=== PATIENT | male | born 2005 | race Two or more races ===

== ENCOUNTER 2024-05-22 22:17 | Emergency (ER) | payer OTHER ==
[~2024-05-22] VITALS: Ht 180.3 cm; Wt 68.0 kg
[~2024-05-22 22:17] MED LIST: AMOX-430 PO; FLUT16SP16 BNOSTRILS; NAPR-1164 PO
[2024-05-23] MEDS ORDERED: NAPR-1009 PO (02:27)
[2024-05-23 02:37] VITALS: BP 132/68; TEMP 98.1; O2SAT 98
== END 2024-05-23 02:37 | disposition home or self-care (01) ==
LOC: ER 22:23
DX: M25.429 Effusion, unspecified elbow (principal); M79.632 Pain in left forearm; M25.522 Pain in left elbow; M79.89 Other specified soft tissue disorders
CPT/HCPCS: 73200-TC

== ENCOUNTER 2025-04-29 10:19 | Emergency (ER) | payer OTHER ==
[~2025-04-29] VITALS: Ht 177.8 cm; Wt 72.6 kg
[~2025-04-29 10:19] MED LIST changes: +NAPR-1009 PO
[2025-04-29 10:24] VITALS: TEMP 98.3
[2025-04-29] MEDS ORDERED: TDAP [DIPH/PERTUSSIS/TET] 0.5 ML VIAL IM ONE (12:27)
[2025-04-29 12:30] VITALS: BP 136/80
[2025-04-29] MEDS: TDAP [DIPH/PERTUSSIS/TET] 0.5 ML VIAL IM ONE (12:33)
[2025-04-29 12:35] VITALS: O2SAT 99
== END 2025-04-29 12:35 | disposition home or self-care (01) ==
LOC: ER 10:31
DX: S06.0X0A Concussion without loss of consciousness, initial encounter (principal); S00.83XA Contusion of other part of head, initial encounter; R11.0 Nausea; R20.0 Anesthesia of skin; R53.83 Other fatigue; W22.8XXA Striking against or struck by other objects, initial encounter; Y93.89 Activity, other specified; Y92.89 Other specified places as the place of occurrence of the external cause; Y99.8 Other external cause status
CPT/HCPCS: 70450-TC; 90715